=== PATIENT | female | born 1950 | race Caucasian/White ===

== ENCOUNTER 2020-12-07 12:58 | Outpatient (REF) | payer MEDICARE, OTHER, SELFPAY ==
--- NOTE | 2020-12-07 14:58 | MHC.AU.ANR ---
Adult Audiological Evaluation Date of Visit: 12/07/20 Reason for Appointment: Audiological re-evaluation due to concern for increased tinnitus. Ms. Whittaker notes that her tinnitus has become louder and increasingly bothersome. She has previously been diagnosed with a bilateral, high-frequency, sensorineural hearing loss. She feels she still hears well and hasn't noticed much of a change to her hearing. She denies any changes to her medical history since her last visit. Does patient feel they have a hearing loss?: Yes If Yes, Which Ear?: Both Ears Has hearing been tested previously?: Yes Previous Hearing Test Results: [facility] [place], 09/20/2018- Normal sloping to moderately severe SNHL bilaterally. Ear History: Bothersome Tinnitus/Ringing/Noises in Ears: Both Ears Medical History: Medical History: High Blood Pressure Otoscopy: Right Ear: Unremarkable Left Ear: Unremarkable Tympanometry: Tympanometry performed due to: To assess integrity of the middle ear system Right Ear: Normal Middle Ear System (Type A) Left Ear: Normal Middle Ear System (Type A) Hearing Evaluation: Transducer(s) Used: Insert Earphones, Bone Conduction Method: Conventional Audiometry Stimuli Used: Pure Tones Right Ear: Description of Hearing: Normal hearing from 250-1500 Hz, sloping to a mild to moderately severe sensorineural hearing loss from 8982-5384 Hz. Left Ear: Description of Hearing: Normal hearing from 250-2000 Hz, sloping to a mild to moderately severe sensorineural hearing loss from 9696-1763 Hz. Speech Recognition Threshold (SRT): Method Used: Monitored Live Voice Stimuli Used: Spondee Words Right Ear: 10 dBHL Left Ear: 10 dBHL Word Discrimination: Method: Recorded Lists Word Lists Used: NU-6 Right Ear: 92% at 55 dBHL Left Ear: 92% at 55 dBHL Recommendations: Audiological re-evaluation if changes are noted. Audiological re-evaluation in one year. Ms. Whittaker was advised that based on her hearing levels, she is considered a borderline candidate for amplification. She does not feel she is ready to pursue hearing aids at this time. Discussed tinnitus management techniques. Diagnosis: Primary Diagnosis: H90.3 Bilateral Sensorineural Hearing Loss Secondary Diagnosis: H93.13 Tinnitus, Bilateral Services Performed: Services Performed: Comprehensive Audiological Evaluation (CPT 07957) Tympanometry (CPT 42691) Signature: Provider: Arnaldo Carvajal, CCC-A
== END 2020-12-07 12:59 | disposition home or self-care (01) ==
LOC: HO.SH 12:58
PROVIDERS: Visit Provider Internal Medicine
DX: H90.3 Sensorineural hearing loss, bilateral (principal); H93.13 Tinnitus, bilateral
CPT/HCPCS: 92557; 92567

== ENCOUNTER 2022-02-10 09:52 | Outpatient (REF) | payer MEDICARE, OTHER, SELFPAY ==
--- NOTE | 2022-02-23 09:24 | MHC.AU.ANO ---
Adult Audiological Evaluation Date of Visit: 02/10/22 Fitting Room Checker Used: Not Applicable Reason for Appointment: Audiologic re-evaluation to determine possible change in hearing ability. Sanjana has a history of tinnitus and bilateral moderate to moderately-severe high frequency sensorineural hearing loss first identified in 2016. Possible trial period with binaural hearing aids has been discussed previously; however, Sanjana had not been interested in pursuing amplification. Has hearing been tested previously?: Previous Hearing Test Results: 12/07/2020 [facility] Normal hearing thresholds 250-1500 Hz, sloping to a moderately-severe high frequency sensorineural hearing loss bilaterally with 92% speech understanding at 55 dB HL for both ears. Ear History: Bothersome Tinnitus/Ringing/Noises in Ears: Both Ears Medical History: Medical History: High Blood Pressure Medication List: Atenolol Vagifem, Vitamins Otoscopy: Right Ear: Unremarkable Left Ear: Unremarkable Tympanometry: Tympanometry performed due to: To assess integrity of the middle ear system Right Ear: Normal Middle Ear System (Type A) Left Ear: Normal Middle Ear System (Type A) Hearing Evaluation: Transducer(s) Used: Insert Earphones Bone Conduction Method: Conventional Audiometry Stimuli Used: Pure Tones Right Ear: Description of Hearing: Normal hearing thresholds 250-1500 Hz, sloping to a moderately-severe sensorineural hearing loss Left Ear: Description of Hearing: Normal hearing thresholds 250-1500 Hz, sloping to a severe sensorineural hearing loss Speech Recognition Threshold (SRT): Method Used: Monitored Live Voice Stimuli Used: Spondee Words Right Ear: 15 dB HL Left Ear: 15 dB HL Word Discrimination: Method: Recorded Lists Word Lists Used: NU-6 Right Ear: 80% at 55 dB HL 96% at 60 dB HL Left Ear: 84% at 55 dB HL 92% at 60 dB HL Comparison: Compared to the most recent evaluation: Thresholds have decreased bilaterally. Interpretation of Results: Today's results indicate decreasing hearing thresholds, right ear greater than left. Speech discrimination scores showed a decrease with the presentation level being the same as last year's test. When the presentation level is increased, speech understanding improves, which suggests Sanjana may benefit from hearing aids. Recommendations: Trial with amplification is recommended. Advised Sanjana to schedule a Hearing Aid Evaluation appointment if she would like to pursue trial with hearing aids at this office. Audiological re-evaluation in one year. Will send a reminder card. Diagnosis: Primary Diagnosis: H93.13 Tinnitus, Bilateral Secondary Diagnosis: H90.3 Bilateral Sensorineural Hearing Loss Services Performed: Comprehensive Audiological Evaluation (CPT 86354) Tympanometry (CPT 05654) Signature: Provider: Arnaldo Morley, CCC-A
== END 2022-02-10 09:53 | disposition home or self-care (01) ==
LOC: HO.SH 09:52
PROVIDERS: Visit Provider Internal Medicine
DX: Z01.118 Encounter for examination of ears and hearing with other abnormal findings (principal); H93.13 Tinnitus, bilateral; H90.3 Sensorineural hearing loss, bilateral
CPT/HCPCS: 92557; 92567

== ENCOUNTER 2022-07-04 10:18 | Outpatient (REF) | payer MEDICARE, OTHER, SELFPAY | END 2022-07-04 10:19 | disposition home or self-care (01) | LOC: HO.SH 10:18 | PROVIDERS: Visit Provider Internal Medicine | DX: H90.3 Sensorineural hearing loss, bilateral (principal); H69.92 Unspecified Eustachian tube disorder, left ear | CPT/HCPCS: 92553; 92567 ==

== ENCOUNTER 2024-03-25 09:48 | Outpatient (REF) | payer MEDICARE, OTHER, SELFPAY | END 2024-03-25 09:49 | disposition home or self-care (01) | LOC: HO.SH 09:48 | PROVIDERS: Visit Provider Internal Medicine | DX: Z01.118 Encounter for examination of ears and hearing with other abnormal findings (principal); H90.3 Sensorineural hearing loss, bilateral | CPT/HCPCS: 92552; 92556 ==